=== PATIENT | female | born 1950 | race African-American/Black ===

== ENCOUNTER 2017-05-03 21:20 | Inpatient (IN) | payer OTHER ==
[2017-05-03] MEDS ORDERED: chlordiazePOXIDE HCL 25 MG CAPSULE PO PRN (23:07)
[2017-05-03] MEDS ORDERED: IBUPROFEN 400 MG TABLET (FP) PO PRN (23:07)
[2017-05-03] MEDS ORDERED: LOPERAMIDE HCL 2 MG CAPSULE PO PRN (23:07)
[2017-05-03] MEDS ORDERED: P-EPHED 60MG/TRIPROLIDI 2.5MG TABLET PO PRN (23:07)
[2017-05-03] MEDS ORDERED: MAG HYDROX/AL HYDROX/SIMETH 30 ML UNIT-DOSE CUP PO PRN (23:07)
[2017-05-03] MEDS ORDERED: guaiFENesin/D-METHORPHAN HB 10 ML UNIT-DOSE CUPS PO PRN (23:07)
[2017-05-03] MEDS ORDERED: MAGNESIUM HYDROX 2400MG/30ML ORAL SUSPENSION 30 ML CUP PO PRN (23:07)
[2017-05-03] MEDS ORDERED: NICOTINE POLACRILEX 2 MG GUM BC PRN (23:07)
[2017-05-03] MEDS ORDERED: ACETAMINOPHEN 325 MG TABLET (FP) PO PRN (23:07)
[2017-05-03] MEDS ORDERED: chlordiazePOXIDE HCL 25 MG CAPSULE PO ONE (23:07)
[2017-05-03] MEDS ORDERED: MAGNESIUM CITRATE 300 ML BOTTLE PO PRN (23:07)
--- NOTE | 2017-05-03 23:07 | HP ---
CIWA Score - CIWA Score Nausea/Vomitin-Mild Nausea/No Vomiting Muscle Tremors: 4-Moderate,w/Arms Extend Anxiety: 4-Mod. Anxious/Guarded Agitation: 4-Moderately Restless Paroxysmal Sweats: 1-Minimal Palms Moist Orientation: 0-Oriented Tacttile Disturbances: 0-None Auditory Disturbances: 0-None Visual Disturbances: 0-None Headache: 0-None Present CIWA-Ar Total Score: 14 Admission ROS BHS - HPI Chief Complaint: withdrawal sx Allergies/Adverse Reactions: Allergies Allergy/AdvReac Type Severity Reaction Status Date / Time No Known Allergies Allergy Verified 05/03/17 23:21 History of Present Illness: 66 years old female with long history of alcohol nicotine dependence has asthma hypertension diabetes ii and veno stasis, positive ppd and depression is admitted to detox Exam Limitations: No Limitations - Ebola screening Have you traveled outside of the country in the last 21 days: No (N) Have you had contact with anyone from an Ebola affected area: No Have you been sick,other than usual withdrawal symptoms: No Do you have a fever: No - Review of Systems Constitutional: Changes in sleep, Weight Stable EENT: reports: Dental Problems (multiple teeth missing) Respiratory: reports: SOB with Exertion Cardiac: reports: No Symptoms Reported GI: reports: Nausea, Poor Fluid Intake, Indigestion, Abdominal cramping : reports: No Symptoms Reported Musculoskeletal: reports: No Symptoms Reported Integumentary: reports: Change in Color (right lower leg > left veno stasis hyperpigmentation) Neuro: reports: Tremors Endocrine: reports: No Symptoms Reported Hematology: reports: No Symptoms Reported Psychiatric: reports: Judgement Intact, Orientated x3, Anxious, Depressed Other Systems: Reviewed and Negative Patient History - Patient Medical History Hx Anemia: No Hx Asthma: Yes (ALBUTEROL INHALER) Hx Chronic Obstructive Pulmonary Disease (COPD): No Hx Cancer: No Hx Cardiac Disorders: No Hx Congestive Heart Failure: No Hx Hypertension: Yes (on meds.) Hx Hypercholesterolemia: Yes (ON MED) Hx Pacemaker: No HX Cerebrovascular Accident: No Hx Seizures: No Hx Dementia: No Hx Diabetes: Yes (Type II- ON METFORMIN) Hx Gastrointestinal Disorders: No Hx Liver Disease: No Hx Genitourinary Disorders: No Hx Sexually Transmitted Disorders: No Hx Renal Disease (ESRD): No Hx Thyroid Disease: No Hx Human Immunodeficiency Virus (HIV): No (NEGATIVE HX) Hx Hepatitis C: No Hx Depression: Yes Hx Suicide Attempt: No Hx Bipolar Disorder: No Hx Schizophrenia: No - Patient Surgical History Past Surgical History: No Hx Neurologic Surgery: No Hx Cataract Extraction: No Hx Cardiac Surgery: No Hx Lung Surgery: No Hx Breast Surgery: No Hx Breast Biopsy: No Hx Abdominal Surgery: No Hx Appendectomy: No Hx Cholecystectomy: No Hx Genitourinary Surgery: No Hx Orthopedic Surgery: No - PPD History Previous Implant?: Yes Documented Results: Positive w/o proof Implanted On Prior [facility] Admission?: No Results: CXR TO BE DONE PPD to be Administered?: No - Reproductive History Patient is a Female of Child Bearing Age (11 -55 yrs old): No Patient : No - Smoking Cessation Smoking history: Current every day smoker Have you smoked in the past 12 months: Yes Aproximately how many cigarettes per day: 4 Cigars Per Day: 0 Hx Chewing Tobacco Use: No Initiated information on smoking cessation: Yes 'Breaking Loose' booklet given: 05/03/17 - Substance & Tx. History Hx Alcohol Use: Yes Hx Substance Use: Yes Substance Use Type: Alcohol, Heroin Hx Substance Use Treatment: Yes (05/04-05/08/16 [facility] - Substances Abused Alcohol Route: Oral Frequency: Daily Amount used: pint volka Age of first use: 17 Date of Last Use: 05/02/17 methadone Route: Oral Frequency: Daily Amount used: 80 mg Age of first use: 58 Date of Last Use: 05/03/17 Family Disease History - Family Disease History Family Disease History: Heart Disease: Mother (HTN/), Sister (HTN, ALCOHOL/DRUG/), Respiratory: Brother (DRUG/ALCOHOL/), Other: Father (), Mother, Brother, Sister Admission Physical Exam BHS - Physical General Appearance: Yes: Nourished, Appropriately Dressed, Mild Distress, Tremorous, Irritable, Sweating, Anxious HEENTM: Yes: Hearing grossly Normal, Normal ENT Inspection, Normocephalic, Normal Voice Respiratory: Yes: Chest Non-Tender, No Respiratory Distress, No Accessory Muscle Use, Wheezing, Expiration Neck: Yes: Supple, Trachea in good position Breast: Yes: Breasts Symetrical Cardiology: Yes: Regular Rhythm, S1, S2, Tachycardia (anxiousness - boyfriend recently) Abdominal: Yes: Normal Bowel Sounds, Non Tender, Soft Genitourinary: Yes: Within Normal Limits Back: Yes: Normal Inspection Musculoskeletal: Yes: full range of Motion, Gait Steady Extremities: Yes: Normal Range of Motion, Non-Tender, Tremors Neurological: Yes: Fully Oriented, Alert, Motor Strength 5/5, Normal Response, Depressed Affect Integumentary: Yes: Warm, Other (lower extremities discoloration) Lymphatic: Yes: Within Normal Limits - Diagnostic (1) Alcohol dependence with uncomplicated withdrawal Current Visit: Yes Status: Acute (2) Nicotine dependence Current Visit: Yes Status: Acute Qualifiers: Nicotine product type: cigarettes Substance use status: in withdrawal Qualified Code(s): F17.213 - Nicotine dependence, cigarettes, with withdrawal (3) Asthma Current Visit: Yes Status: Chronic Qualifiers: Asthma severity: mild persistent Asthma complication type: uncomplicated Qualified Code(s): J45.30 - Mild persistent asthma, uncomplicated (4) HTN (hypertension) Current Visit: Yes Status: Chronic Qualifiers: Hypertension type: essential hypertension Qualified Code(s): I10 - Essential (primary) hypertension (5) Hypercholesterolemia Current Visit: Yes Status: Chronic (6) Type II diabetes mellitus Current Visit: Yes Status: Chronic Qualifiers: Diabetes mellitus complication status: with skin complications Diabetes mellitus complication detail: with other skin complication Diabetes mellitus long-term insulin use: without long-term use Qualified Code(s): E11.628 - Type 2 diabetes mellitus with other skin complications; Z79.4 - [facility] (current) use of insulin (7) Methadone maintenance therapy patient Current Visit: Yes Status: Chronic Comment: 80 mg daily verification pending Cleared for Admission [facility] - Detox or Rehab [facility] Level of Care: Medically Managed Detox Regimen/Protocol: Librium [facility] Breath Alcohol Content Breath Alcohol Content: 0 Vital Signs - Vital Signs Vital Signs Refused: No Temperature: 98.6 F Temperature Source: Oral (98.6) Pulse Rate: 128 Respiratory Rate: 20 Blood Pressure: 134/72 BP Location: Left Arm Blood Pressure Position: Sitting - Height Height: 5 ft 6 in - Weight Weight: 155 lb Weight Measurement Method: Standing Scale Body Mass Index (BMI): 25.0 - Bowel Function Bowel Movement: Yes Urine Drug Screen - Control Is Test Valid: Yes - Results Drug Screen Negative: No Urine Drug Screen Results: MTD-Methadone
[2017-05-03] MEDS ORDERED: ALBUTEROL SO4 6.7 GM HFA INHALER IH PRN (23:14)
[2017-05-03] MEDS ORDERED: ALBUTEROL SO4 2.5/IPRATROPIUM 0.5 INH SOL 3 ML VIAL.NEB. NEB PRN (23:14)
[2017-05-03 23:21] VITALS: BMI 25.0
[2017-05-04] MEDS: diphenhydrAMINE HCL 50 MG CAPSULE PO PRN ×2 (00:43→22:41)
[2017-05-04] MEDS: chlordiazePOXIDE HCL 25 MG CAPSULE PO SCH ×5 (00:45→22:40)
[2017-05-04] MEDS: metFORMIN HCL 500 MG TABLET (FP) PO SCH ×2 (06:10→18:00)
[2017-05-04] MEDS ORDERED: METHADONE HCL 40 MG DISPERSABLE TABLET PO SCH ×2 (08:45→09:25)
[2017-05-04 09:41] LABS: PH,URINE 6.5 (5.0-8.0); URINE APPEARANCE CLEAR; URINE BILIRUBIN NEGATIVE (NEGATIVE); URINE BLOOD NEGATIVE (NEGATIVE); URINE COLOR LT. YELLOW; URINE GLUCOSE (UA) NEGATIVE (NEGATIVE); URINE KETONE NEGATIVE (NEGATIVE); URINE NITRITE NEGATIVE (NEGATIVE); URINE PROTEIN NEGATIVE (NEGATIVE); URINE UROBILINOGEN 0.2 mg/dL (0.2-1.0)
[2017-05-04 09:43] LABS: MCH 32.6 pg (25.7-33.7); MEAN CELL VOLUME 95.8 fl (80-96); MEAN PLT VOLUME 8.4 fl (7.5-11.1); PLATELET COUNT 103 K/MM3 (134-434); RDW 15.8 % (11.6-15.6); WHITE BLOOD COUNT 4.2 K/mm3 (4.0-10.0)
[2017-05-04 09:54] LABS: URINE LEUK ESTERASE 1+ (NEGATIVE)
[2017-05-04] MEDS ORDERED: METHADONE HCL 40 MG DISPERSABLE TABLET ONE (09:55)
[2017-05-04] MEDS ORDERED: METHADONE HCL 10 MG TABLET ONE (09:56)
[2017-05-04 10:15] LABS: URINE BACTERIA RARE /hpf (NONE SEEN); URINE WBC 1 /hpf (3-5)
[2017-05-04 10:21] LABS: ALBUMIN 3.3 g/dl (3.4-5.0); ALK PHOS 143 U/L (45-117); ANION GAP 9 (8-16); CALCIUM 8.3 mg/dL (8.5-10.1); CO2 27 mmol/L (21-32); GLUCOSE,RANDOM 114 mg/dL (74-106); SGOT/AST 261 U/L (15-37); SGPT/ALT 83 U/L (12-78); TOT PROT 6.2 g/dl (6.4-8.2)
[2017-05-04] MEDS: ASPIRIN 81 MG CHEWABLE TABLETS PO SCH (11:00)
[2017-05-04] MEDS: METHADONE 80 MG, METHADONE 10 MG PO SCH (11:00)
[2017-05-04] MEDS: amLODIPine BESYLATE 10 MG TABLET (FP) PO SCH (11:03)
[2017-05-04] MEDS: LISINOPRIL 10 MG TABLET (FP) PO SCH (11:03)
[2017-05-04] MEDS: NICOTINE 14 MG/24 HOURS TOPICAL PATCH TD SCH (11:04)
[2017-05-04] MEDS: PRENATAL VITAMINS W/ FOLIC ACID TABLET (FP) PO SCH (11:06)
--- NOTE | 2017-05-04 12:01 | PN ---
S CIWA - CIWA Score Nausea/Vomitin Muscle Tremors: 4-Moderate,w/Arms Extend Anxiety: 4-Mod. Anxious/Guarded Agitation: 4-Moderately Restless Paroxysmal Sweats: 3 Orientation: 0-Oriented Tacttile Disturbances: 0-None Auditory Disturbances: 0-None Visual Disturbances: 0-None Headache: 0-None Present CIWA-Ar Total Score: 18 BHS Progress Note (SOAP) Subjective: nausea, sweats, interrupted sleep, anxiety, tremors Objective: 05/04/17 12:00 Vital Signs - 8 hr 05/04/17 05/04/17 07:21 10:54 Temperature 97.3 F L 99.9 F H Pulse Rate 120 H 114 H Respiratory 20 16 Rate Blood Pressure 133/73 142/68 Laboratory Tests 05/04/17 05/04/17 05/04/17 06:09 07:00 07:00 WBC 4.2 RBC 3.76 Hgb 12.2 Hct 36.0 MCV 95.8 MCH 32.6 MCHC 34.0 RDW 15.8 H Plt Count 103 L MPV 8.4 Sodium 131 L Potassium 4.3 Chloride 95 L Carbon Dioxide 27 Anion Gap 9 BUN 20 H Creatinine 1.0 Creat Clearance w eGFR 55.47 POC Glucometer 119 Random Glucose 114 H Calcium 8.3 L Total Bilirubin 1.0 D AST 261 H D ALT 83 H D Alkaline Phosphatase 143 H D Total Protein 6.2 L Albumin 3.3 L Urine Color Urine Appearance Urine pH Urine Protein Urine Glucose (UA) Urine Ketones Urine Blood Urine Nitrite Urine Bilirubin Urine Urobilinogen Urine RBC Urine WBC Ur Epithelial Cells Urine Bacteria RPR Titer 05/04/17 05/04/17 07:00 07:00 WBC RBC Hgb Hct MCV MCH MCHC RDW Plt Count MPV Sodium Potassium Chloride Carbon Dioxide Anion Gap BUN Creatinine Creat Clearance w eGFR POC Glucometer Random Glucose Calcium Total Bilirubin AST ALT Alkaline Phosphatase Total Protein Albumin Urine Color Lt. yellow Urine Appearance Clear Urine pH 6.5 Urine Protein Negative Urine Glucose (UA) Negative Urine Ketones Negative Urine Blood Negative Urine Nitrite Negative Urine Bilirubin Negative Urine Urobilinogen 0.2 Urine RBC None Urine WBC 1 Ur Epithelial Cells Rare Urine Bacteria Rare RPR Titer Nonreactive Assessment: 05/04/17 12:00 withdrawal sx, elevated lfts Plan: cont detox, fluids, repeat labs prn medications
[2017-05-04] MEDS: MENTHOL/PHENOL 1 EACH UD MM PRN ×2 (12:34→23:09)
--- NOTE | 2017-05-04 12:52 | EKG ---
Test Reason : Blood Pressure : / mmHG Vent. Rate : 103 BPM Atrial Rate : 103 BPM P-R Int : 126 ms QRS Dur : 124 ms QT Int : 394 ms P-R-T Axes : 068 -07 093 degrees QTc Int : 516 ms SINUS TACHYCARDIA LEFT BUNDLE BRANCH BLOCK ABNORMAL ECG NO PREVIOUS ECGS AVAILABLE REPEAT EKG IF CLINICALLY INDICATED Confirmed by MARBELLA OLIVERA MD ([id number]) on 05/04/2017 12:52:23 PM Referred By: Confirmed By:MARBELLA OLIVERA MD
[2017-05-04] MEDS ORDERED: chlordiazePOXIDE HCL 25 MG CAPSULE PO ONE (13:00)
--- NOTE | 2017-05-04 14:33 | CONSULT ---
[facility] Psychiatric Consult - Data Date of interview: 05/04/17 Admission source: [facility] Identifying data: Another admission to 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 Substance Abuse History: Confirmed by patient in this interview. Smoking Cessation. Smoking history: Current every day smoker. Have you smoked in the past 12 months: Yes. Aproximately how many cigarettes per day: 4. Cigars Per Day: 0. Hx Chewing Tobacco Use: No. Initiated information on smoking cessation : Yes. 'Breaking Loose' booklet given: 05/03/17. - Substance & Tx. History. Hx Alcohol Use: Yes. Hx Substance Use: Yes. Substance Use Type: Alcohol, Heroin. Hx Substance Use Treatment: Yes (05/04-05/08/16 [facility]). - Substances Abused. Alcohol. Route: Oral. Frequency: Daily. Amount used: pint volka. Age of first use: 17. Date of Last Use: 05/02/17. methadone. Route: Oral. Frequency: Daily. Amount used: 80 mg. Age of first use: 58. Date of Last Use: 05/03/17 Medical History: Hypertension,hepatitis C,bronchial asthma,hypercholesterolemia and diabetes mellitus (type-II). Psychiatric History: No history of mental illness or psychiatric hospitalizations.Ms May is currently on methadone maintenance (90 mg/day) at the [facility].No history of suicide attempts. Physical/Sexual Abuse/Trauma History: No history of abuse. Additional Comment: Urine Drug Screen Results: MTD-Methadone.Noted. Mental Status Exam - Mental Status Exam Alert and Oriented to: Time, Place, Person Cognitive Function: Good Patient Appearance: Well Groomed Mood: Hopeful, Euthymic Affect: Appropriate, Normal Range Patient Behavior: Appropriate, Cooperative (friendly) Speech Pattern: Clear, Appropriate Voice Loudness: Normal Thought Process: Intact, Goal Oriented Thought Disorder: Not Present Hallucinations: Denies Suicidal Ideation: Denies Homicidal Ideation: Denies Insight/Judgement: Poor Sleep: Fair (on benadryl) Appetite: Good Muscle strength/Tone: Normal Gait/Station: Normal Psychiatric Findings - Problem List ([place] 1, 2,3) (1) Alcohol dependence with uncomplicated withdrawal Current Visit: Yes Status: Chronic (2) Opioid dependence on agonist therapy Current Visit: Yes Status: Acute (3) Nicotine dependence Current Visit: Yes Status: Chronic Qualifiers: Nicotine product type: cigarettes Substance use status: uncomplicated Qualified Code(s): F17.210 - Nicotine dependence, cigarettes, uncomplicated (4) Asthma Current Visit: Yes Status: Chronic Qualifiers: Asthma severity: mild intermittent Asthma complication type: uncomplicated Qualified Code(s): J45.20 - Mild intermittent asthma, uncomplicated (5) HTN (hypertension) Current Visit: Yes Status: Chronic Qualifiers: Hypertension type: essential hypertension Qualified Code(s): I10 - Essential (primary) hypertension (6) Hypercholesterolemia Current Visit: Yes Status: Chronic (7) Type II diabetes mellitus Current Visit: Yes Status: Chronic Qualifiers: Diabetes mellitus complication status: with skin complications Diabetes mellitus complication detail: with other skin complication Diabetes mellitus industrial relations counselor insulin use: without industrial relations counselor use Qualified Code(s): E11.628 - Type 2 diabetes mellitus with other skin complications; Z79.4 - intermediate (current) use of insulin (8) Insomnia Current Visit: Yes Status: Acute Comment: Mild.Patient reports benadryl as a useful medication. - Initial Treatment Plan Initial Treatment Plan: Psychoeducation.Detoxification.Benadryl 50 mg po hs prn.Side effects/benefits discussed with the patient.She agrees with this careplan.Observation.
[2017-05-04] MEDS: THIAMINE HCL 100 MG TABLET (FP) PO SCH (22:39)
[2017-05-04] MEDS: ATORVASTATIN CA 10 MG TABLET (FP) PO SCH (22:40)
[2017-05-04] MEDS: MINERAL OIL/PETROLAT/WATER TOPICAL CREAM 113 GM JAR TP SCH (23:04)
[2017-05-05] MEDS ORDERED: METHADONE HCL 10 MG TABLET ONE (04:51)
[2017-05-05] MEDS ORDERED: METHADONE HCL 40 MG DISPERSABLE TABLET ONE (04:51)
[2017-05-05] MEDS: chlordiazePOXIDE HCL 25 MG CAPSULE PO SCH ×3 (06:22→17:41)
[2017-05-05] MEDS: METHADONE 80 MG, METHADONE 10 MG PO SCH (06:22)
[2017-05-05] MEDS: MENTHOL/PHENOL 1 EACH UD MM PRN ×2 (07:01→10:49)
[2017-05-05] MEDS: metFORMIN HCL 500 MG TABLET (FP) PO SCH ×2 (07:02→17:41)
[2017-05-05 09:51] LABS: ALBUMIN 3.6 g/dl (3.4-5.0); ALK PHOS 173 U/L (45-117); ANION GAP 8 (8-16); BILIRUBIN,TOTAL 0.8 mg/dL (0.2-1.0); CO2 29 mmol/L (21-32); CREATININE 1.1 mg/dL (0.55-1.02); GLUCOSE,RANDOM 77 mg/dL (74-106); SGOT/AST 223 U/L (15-37); SGPT/ALT 91 U/L (12-78); TOT PROT 6.5 g/dl (6.4-8.2)
[2017-05-05] MEDS: ASPIRIN 81 MG CHEWABLE TABLETS PO SCH (10:47)
[2017-05-05] MEDS: LISINOPRIL 10 MG TABLET (FP) PO SCH (10:47)
[2017-05-05] MEDS: PRENATAL VITAMINS W/ FOLIC ACID TABLET (FP) PO SCH (10:47)
[2017-05-05] MEDS: amLODIPine BESYLATE 10 MG TABLET (FP) PO SCH (10:48)
[2017-05-05] MEDS: NICOTINE 14 MG/24 HOURS TOPICAL PATCH TD SCH (10:49)
--- NOTE | 2017-05-05 12:54 | PN ---
S CIWA - CIWA Score Nausea/Vomitin-No Nausea/No Vomiting Muscle Tremors: 4-Moderate,w/Arms Extend Anxiety: 3 Agitation: 3 Paroxysmal Sweats: 3 Orientation: 0-Oriented Tacttile Disturbances: 0-None Auditory Disturbances: 0-None Visual Disturbances: 0-None Headache: 0-None Present CIWA-Ar Total Score: 13 S Progress Note (SOAP) Subjective: sweats shakes interrupted sleep agitation Objective: 05/05/17 12:53 Vital Signs Temperature 99.1 F 05/05/17 10:00 Pulse Rate 110 H 05/05/17 10:00 Respiratory Rate 18 05/05/17 10:00 Blood Pressure 106/56 05/05/17 10:00 O2 Sat by Pulse Oximetry (%) Laboratory Tests 05/04/17 05/04/17 05/04/17 06:09 07:00 07:00 WBC 4.2 RBC 3.76 Hgb 12.2 Hct 36.0 MCV 95.8 MCH 32.6 MCHC 34.0 RDW 15.8 H Plt Count 103 L MPV 8.4 INR Sodium 131 L Potassium 4.3 Chloride 95 L Carbon Dioxide 27 Anion Gap 9 BUN 20 H Creatinine 1.0 Creat Clearance w eGFR 55.47 POC Glucometer 119 Random Glucose 114 H Calcium 8.3 L Total Bilirubin 1.0 D AST 261 H D ALT 83 H D Alkaline Phosphatase 143 H D Total Protein 6.2 L Albumin 3.3 L Urine Color Urine Appearance Urine pH Ur Specific Devol Urine Protein Urine Glucose (UA) Urine Ketones Urine Blood Urine Nitrite Urine Bilirubin Urine Urobilinogen Urine RBC Urine WBC Ur Epithelial Cells Urine Bacteria RPR Titer 05/04/17 05/04/17 05/04/17 07:00 07:00 16:35 WBC RBC Hgb Hct MCV MCH MCHC RDW Plt Count MPV INR Sodium Potassium Chloride Carbon Dioxide Anion Gap BUN Creatinine Creat Clearance w eGFR POC Glucometer 152 Random Glucose Calcium Total Bilirubin AST ALT Alkaline Phosphatase Total Protein Albumin Urine Color Lt. yellow Urine Appearance Clear Urine pH 6.5 Ur Specific Devol 1.010 Urine Protein Negative Urine Glucose (UA) Negative Urine Ketones Negative Urine Blood Negative Urine Nitrite Negative Urine Bilirubin Negative Urine Urobilinogen 0.2 Urine RBC None Urine WBC 1 Ur Epithelial Cells Rare Urine Bacteria Rare RPR Titer Nonreactive 05/05/17 05/05/17 05/05/17 06:26 07:00 07:00 WBC RBC Hgb Hct MCV MCH MCHC RDW Plt Count MPV INR 1.00 Sodium 131 L Potassium 4.4 Chloride 94 L Carbon Dioxide 29 Anion Gap 8 BUN 24 H Creatinine 1.1 H Creat Clearance w eGFR 49.69 POC Glucometer 90 Random Glucose 77 D Calcium 9.0 Total Bilirubin 0.8 AST 223 H ALT 91 H Alkaline Phosphatase 173 H D Total Protein 6.5 Albumin 3.6 Urine Color Urine Appearance Urine pH Ur Specific Devol Urine Protein Urine Glucose (UA) Urine Ketones Urine Blood Urine Nitrite Urine Bilirubin Urine Urobilinogen Urine RBC Urine WBC Ur Epithelial Cells Urine Bacteria RPR Titer some improving with ast and alt awake/alert ambulating no acute distress d/c tylenol Assessment: 05/05/17 12:54 withdrawal sx Plan: continue detox increase fluids
[2017-05-05] MEDS: ATORVASTATIN CA 10 MG TABLET (FP) PO SCH (22:37)
[2017-05-05] MEDS: diphenhydrAMINE HCL 50 MG CAPSULE PO PRN (22:37)
[2017-05-05] MEDS: chlordiazePOXIDE 5 MG CAPSULE PO SCH (22:37)
[2017-05-05] MEDS: MINERAL OIL/PETROLAT/WATER TOPICAL CREAM 113 GM JAR TP SCH (22:38)
[2017-05-05] MEDS: THIAMINE HCL 100 MG TABLET (FP) PO SCH (23:02)
[2017-05-06] MEDS ORDERED: METHADONE HCL 40 MG DISPERSABLE TABLET ONE (04:24)
[2017-05-06] MEDS ORDERED: METHADONE HCL 10 MG TABLET ONE (04:25)
[2017-05-06] MEDS: METHADONE 80 MG, METHADONE 10 MG PO SCH (06:39)
[2017-05-06] MEDS: metFORMIN HCL 500 MG TABLET (FP) PO SCH ×2 (06:40→18:18)
[2017-05-06] MEDS: chlordiazePOXIDE 5 MG CAPSULE PO SCH ×3 (06:45→18:17)
[2017-05-06] MEDS: ASPIRIN 81 MG CHEWABLE TABLETS PO SCH (11:05)
[2017-05-06] MEDS: amLODIPine BESYLATE 10 MG TABLET (FP) PO SCH (11:05)
[2017-05-06] MEDS: LISINOPRIL 10 MG TABLET (FP) PO SCH (11:05)
[2017-05-06] MEDS: PRENATAL VITAMINS W/ FOLIC ACID TABLET (FP) PO SCH (11:05)
[2017-05-06] MEDS: NICOTINE 14 MG/24 HOURS TOPICAL PATCH TD SCH (11:08)
--- NOTE | 2017-05-06 11:51 | PN ---
BHS Progress Note (SOAP) Subjective: feeling better little sweats Objective: 05/06/17 11:50 Vital Signs Temperature 98.3 F 05/06/17 10:09 Pulse Rate 74 05/06/17 10:09 Respiratory Rate 20 05/06/17 10:09 Blood Pressure 115/82 05/06/17 10:09 O2 Sat by Pulse Oximetry (%) awake/alert ambulating no acute distress Assessment: 05/06/17 11:50 withdrawal sx Plan: continue detox increase fluids continue eucernin oint as ordered d/c in am
[2017-05-06] MEDS: chlordiazePOXIDE HCL 10 MG CAPSULE PO SCH (22:36)
[2017-05-06] MEDS: THIAMINE HCL 100 MG TABLET (FP) PO SCH (22:36)
[2017-05-06] MEDS: ATORVASTATIN CA 10 MG TABLET (FP) PO SCH (22:36)
[2017-05-06] MEDS: diphenhydrAMINE HCL 50 MG CAPSULE PO PRN (22:37)
[2017-05-06] MEDS: MINERAL OIL/PETROLAT/WATER TOPICAL CREAM 113 GM JAR TP SCH (22:39)
[2017-05-07] MEDS ORDERED: METHADONE HCL 40 MG DISPERSABLE TABLET ONE (04:55)
[2017-05-07] MEDS ORDERED: METHADONE HCL 10 MG TABLET ONE (04:56)
[2017-05-07] MEDS: METHADONE 80 MG, METHADONE 10 MG PO SCH (06:11)
[2017-05-07] MEDS: chlordiazePOXIDE HCL 10 MG CAPSULE PO SCH ×3 (06:12→16:47)
[2017-05-07] MEDS: metFORMIN HCL 500 MG TABLET (FP) PO SCH ×2 (06:12→16:47)
[2017-05-07] MEDS: PRENATAL VITAMINS W/ FOLIC ACID TABLET (FP) PO SCH (09:17)
[2017-05-07] MEDS: ASPIRIN 81 MG CHEWABLE TABLETS PO SCH (09:17)
[2017-05-07] MEDS: LISINOPRIL 10 MG TABLET (FP) PO SCH (09:18)
[2017-05-07] MEDS: NICOTINE 14 MG/24 HOURS TOPICAL PATCH TD SCH (09:18)
[2017-05-07] MEDS: amLODIPine BESYLATE 10 MG TABLET (FP) PO SCH (09:18)
--- NOTE | 2017-05-07 09:32 | DS ---
[facility] Detox Discharge Summary Admission Date: 05/03/17 Discharge Date: 05/07/17 - History Present History: Alcohol Dependence, MMTP - Physical Exam Results Vital Signs: Vital Signs Temperature 97.7 F 05/07/17 06:00 Pulse Rate 103 H 05/07/17 06:00 Respiratory Rate 18 05/07/17 06:00 Blood Pressure 109/56 05/07/17 06:00 O2 Sat by Pulse Oximetry (%) - Treatment Hospital Course: Detox Protocol Followed, Detoxed Safely, Responded well, Discharged Condition Good, Rehab Referral Accepted - Medication Discharge Medications: Ambulatory Orders Albuterol [Ventolin] 17 gm IH Q4H PRN 11/11/11 Lisinopril [Zestril] 20 mg PO DAILY 11/11/11 Simvastatin [Zocor] 20 mg PO HS 11/11/11 Amlodipine Besylate [Norvasc -] 10 mg PO DAILY #30 tablet 04/14/15 Metformin HCl [Glucophage -] 500 mg PO BID #60 tablet 04/14/15 Aspirin [ASA -] 81 mg PO DAILY 05/04/16 Mirtazapine 7.5 mg PO HS #20 tablet 05/07/16 - Diagnosis (1) Alcohol dependence with uncomplicated withdrawal Current Visit: Yes Status: Chronic (2) Nicotine dependence Current Visit: Yes Status: Chronic Qualifiers: Nicotine product type: cigarettes Substance use status: uncomplicated Qualified Code(s): F17.210 - Nicotine dependence, cigarettes, uncomplicated (3) Asthma Current Visit: Yes Status: Chronic Qualifiers: Asthma severity: mild intermittent Asthma complication type: uncomplicated Qualified Code(s): J45.20 - Mild intermittent asthma, uncomplicated (4) HTN (hypertension) Current Visit: Yes Status: Chronic Qualifiers: Hypertension type: essential hypertension Qualified Code(s): I10 - Essential (primary) hypertension (5) Hypercholesterolemia Current Visit: Yes Status: Chronic (6) Methadone maintenance therapy patient Current Visit: Yes Status: Chronic (7) Type II diabetes mellitus Current Visit: Yes Status: Chronic Qualifiers: Diabetes mellitus complication status: with skin complications Diabetes mellitus complication detail: with other skin complication Diabetes mellitus regional intermodal truck driver insulin use: without regional intermodal truck driver use Qualified Code(s): E11.628 - Type 2 diabetes mellitus with other skin complications; Z79.4 - long term acute care registered nurse (current) use of insulin - AMA Did Patient Leave Against Medical Advice: No
[2017-05-07 17:33] VITALS: BP 106/58; PULSE 90; TEMP 98.2
== END 2017-05-07 18:15 | disposition other institution (70) | DRG 897 ==
LOC: YASAS 21:20 → Y6N 23:17
PROVIDERS: ADMIT Internal Medicine; ATTEND Internal Medicine
PROC: HZ2ZZZZ Detoxification Services for Substance Abuse Treatment (ICD-10-PCS; principal; 2017-05-03)
DX: F11.20 Opioid dependence, uncomplicated (principal); F10.230 Alcohol dependence with withdrawal, uncomplicated; F17.210 Nicotine dependence, cigarettes, uncomplicated; G47.00 Insomnia, unspecified; I10 Essential (primary) hypertension; E11.628 Type 2 diabetes mellitus with other skin complications; Z79.4 Long term (current) use of insulin
CPT/HCPCS: 36415; 71020-TC; 80053; 81003; 81015; 85027; 85610; 86593; 93005; 93010

== ENCOUNTER 2017-05-07 17:34 | Inpatient (IN) | payer OTHER ==
--- NOTE | 2017-05-07 20:29 | HP ---
[facility] Re[facility] Assess/Revision - Admission History Admitted to Rehab from: [facility] Date of Admission to Rehab: 05/07/17 - Findings Detox History & Physical reviewed: Yes Concur with findings: Yes Comments/Additional Findings: TRANSFERRED FROM DETOX TO REHAB ADMISSION PER PROTOCOL
[2017-05-07] MEDS ORDERED: P-EPHED 60MG/TRIPROLIDI 2.5MG TABLET PO PRN (20:30)
[2017-05-07] MEDS ORDERED: MENTHOL/PHENOL 1 EACH UD MM PRN (20:30)
[2017-05-07] MEDS ORDERED: hydrOXYzine PAMOATE 50 MG CAPSULE (FP) PO PRN (20:30)
[2017-05-07] MEDS ORDERED: LOPERAMIDE HCL 2 MG CAPSULE PO PRN (20:30)
[2017-05-07] MEDS ORDERED: MAGNESIUM CITRATE 300 ML BOTTLE PO PRN (20:30)
[2017-05-07] MEDS ORDERED: MAGNESIUM HYDROX 2400MG/30ML ORAL SUSPENSION 30 ML CUP PO PRN (20:30)
[2017-05-07] MEDS ORDERED: MAG HYDROX/AL HYDROX/SIMETH 30 ML UNIT-DOSE CUP PO PRN (20:30)
[2017-05-07] MEDS ORDERED: NICOTINE 14 MG/24 HOURS TOPICAL PATCH TD PRN (20:30)
[2017-05-07] MEDS ORDERED: guaiFENesin/D-METHORPHAN HB 10 ML UNIT-DOSE CUPS PO PRN (20:30)
--- NOTE | 2017-05-07 20:30 | HP ---
Admission ROS S - HPI Allergies/Adverse Reactions: Allergies Allergy/AdvReac Type Severity Reaction Status Date / Time No Known Allergies Allergy Verified 05/03/17 23:21 - Ebola screening Have you traveled outside of the country in the last 21 days: No Have you had contact with anyone from an Ebola affected area: No Do you have a fever: No Patient History - Patient Medical History Hx Anemia: No Hx Asthma: Yes (ALBUTEROL INHALER) Hx Chronic Obstructive Pulmonary Disease (COPD): No Hx Cancer: No Hx Cardiac Disorders: No Hx Congestive Heart Failure: No Hx Hypertension: Yes (on meds.) Hx Hypercholesterolemia: Yes (ON MED) Hx Pacemaker: No HX Cerebrovascular Accident: No Hx Seizures: No Hx Dementia: No Hx Diabetes: Yes (Type II- ON METFORMIN) Hx Gastrointestinal Disorders: No Hx Liver Disease: No Hx Genitourinary Disorders: No Hx Sexually Transmitted Disorders: No Hx Renal Disease (ESRD): No Hx Thyroid Disease: No Hx Human Immunodeficiency Virus (HIV): No (NEGATIVE HX) Hx Hepatitis C: No Hx Depression: Yes Hx Suicide Attempt: No Hx Bipolar Disorder: No Hx Schizophrenia: No - Patient Surgical History Past Surgical History: No Hx Neurologic Surgery: No Hx Cataract Extraction: No Hx Cardiac Surgery: No Hx Lung Surgery: No Hx Breast Surgery: No Hx Breast Biopsy: No Hx Abdominal Surgery: No Hx Appendectomy: No Hx Cholecystectomy: No Hx Genitourinary Surgery: No Hx Section: No Hx Orthopedic Surgery: No Anesthesia Reaction: No - PPD History Results: CXR TO BE DONE - Smoking Cessation Smoking history: Former smoker Have you smoked in the past 12 months: No Aproximately how many cigarettes per day: 0 Cigars Per Day: 0 Hx Chewing Tobacco Use: No Initiated information on smoking cessation: No Family Disease History - Family Disease History Family Disease History: Heart Disease: Mother (HTN/), Sister (HTN, ALCOHOL/DRUG/), Respiratory: Brother (DRUG/ALCOHOL/), Other: Father (), Mother, Brother, Sister BHS Breath Alcohol Content Breath Alcohol Content: 0 Inpatient Rehab Admission - Initial Determination Are CD services needed?: Yes Free of communicable disease: Yes Not in need of hospitalization: Yes - Rehab Admission Criteria Previous failed treatment: Yes Poor recovery environment: No Comorbidities: No Lacks judgement: No Patient is meeting Inpatient Rehab admission criteria:: Yes
[2017-05-07] MEDS ORDERED: ALBUTEROL SO4 18 GM HFA INHALER IH PRN (20:31)
[2017-05-07] MEDS: ATORVASTATIN CA 10 MG TABLET (FP) PO SCH (22:28)
[2017-05-07] MEDS: THIAMINE HCL 100 MG TABLET (FP) PO SCH (22:28)
[2017-05-07] MEDS: diphenhydrAMINE HCL 50 MG CAPSULE PO PRN (22:28)
[2017-05-08] MEDS: diphenhydrAMINE HCL 50 MG CAPSULE PO PRN ×2 (02:05→22:09)
[2017-05-08] MEDS: metFORMIN HCL 500 MG TABLET (FP) PO SCH ×2 (06:50→17:25)
[2017-05-08] MEDS: INSULIN SLIDING SCALE (NOVOLOG) 1 VIAL SQ SCH ×2 (06:50→17:27)
[2017-05-08] MEDS ORDERED: METHADONE HCL 40 MG DISPERSABLE TABLET PO SCH (07:30)
[2017-05-08] MEDS ORDERED: FLU VACCINE QUAD 60 MCG/0.5 ML (MDV 17-18) IM ONE ×2 (07:57→12:00)
[2017-05-08] MEDS ORDERED: METHADONE HCL 10 MG TABLET ONE (08:55)
[2017-05-08] MEDS ORDERED: METHADONE HCL 40 MG DISPERSABLE TABLET ONE (08:55)
[2017-05-08] MEDS: METHADONE 80 MG, METHADONE 10 MG PO SCH (09:00)
[2017-05-08] MEDS: amLODIPine BESYLATE 10 MG TABLET (FP) PO SCH (10:31)
[2017-05-08] MEDS: PRENATAL VITAMINS W/ FOLIC ACID TABLET (FP) PO SCH (10:31)
[2017-05-08] MEDS: ASPIRIN 81 MG CHEWABLE TABLETS PO SCH (10:31)
[2017-05-08] MEDS: THIAMINE HCL 100 MG TABLET (FP) PO SCH (22:09)
[2017-05-08] MEDS: ATORVASTATIN CA 10 MG TABLET (FP) PO SCH (22:10)
[2017-05-09] MEDS ORDERED: METHADONE HCL 40 MG DISPERSABLE TABLET ONE (06:05)
[2017-05-09] MEDS ORDERED: METHADONE HCL 10 MG TABLET ONE (06:05)
[2017-05-09] MEDS: metFORMIN HCL 500 MG TABLET (FP) PO SCH ×2 (06:35→17:04)
[2017-05-09] MEDS: METHADONE 80 MG, METHADONE 10 MG PO SCH (06:35)
[2017-05-09] MEDS: NICOTINE POLACRILEX 2 MG GUM BUC PRN ×3 (06:36→15:47)
[2017-05-09] MEDS: INSULIN SLIDING SCALE (NOVOLOG) 1 VIAL SQ SCH ×2 (07:06→17:03)
[2017-05-09] MEDS: ASPIRIN 81 MG CHEWABLE TABLETS PO SCH (10:11)
[2017-05-09] MEDS: amLODIPine BESYLATE 10 MG TABLET (FP) PO SCH (10:11)
[2017-05-09] MEDS: PRENATAL VITAMINS W/ FOLIC ACID TABLET (FP) PO SCH (10:11)
[2017-05-09] MEDS: ATORVASTATIN CA 10 MG TABLET (FP) PO SCH (21:18)
[2017-05-09] MEDS: THIAMINE HCL 100 MG TABLET (FP) PO SCH (21:18)
[2017-05-10] MEDS ORDERED: METHADONE HCL 10 MG TABLET ONE (03:39)
[2017-05-10] MEDS ORDERED: METHADONE HCL 40 MG DISPERSABLE TABLET ONE (03:39)
[2017-05-10] MEDS: INSULIN SLIDING SCALE (NOVOLOG) 1 VIAL SQ SCH ×2 (06:25→17:04)
[2017-05-10] MEDS: METHADONE 80 MG, METHADONE 10 MG PO SCH (06:26)
[2017-05-10] MEDS: metFORMIN HCL 500 MG TABLET (FP) PO SCH ×2 (06:27→17:03)
[2017-05-10] MEDS: NICOTINE POLACRILEX 2 MG GUM BUC PRN (06:28)
[2017-05-10] MEDS: ASPIRIN 81 MG CHEWABLE TABLETS PO SCH (10:25)
[2017-05-10] MEDS: amLODIPine BESYLATE 10 MG TABLET (FP) PO SCH (10:25)
[2017-05-10] MEDS: PRENATAL VITAMINS W/ FOLIC ACID TABLET (FP) PO SCH (10:25)
--- NOTE | 2017-05-10 13:20 | HP ---
Psychiatrist Admission - Data Date of interview: 05/10/17 Admission source: [address] [place] [address] Identifying data: This is the first admission to [address] [place] [address] rehabilitation for this 66 years old AA mother of 48 yo son,resides alone ,supported by [facility]. Medical History: DM,Hyperlipidemia,HTN. Psychiatric History: denies Physical/Sexual Abuse/Trauma History: denies Vital Signs: Vital Signs - 24 hr 05/10/17 05/10/17 05/10/17 00:30 03:30 07:44 Temperature 98.9 F Pulse Rate 93 H Respiratory 18 18 18 Rate Blood Pressure 95/63 05/10/17 10:00 Temperature Pulse Rate 83 Respiratory 18 Rate Blood Pressure 109/67 Allergies/Adverse Reactions: Allergies Allergy/AdvReac Type Severity Reaction Status Date / Time No Known Allergies Allergy Verified 05/03/17 23:21 Date of last physical exam: 05/03/17 Concur with the findings of this exam: Yes - Substance Abuse/Tx History Hx Alcohol Use: Yes (drinking since 17 yo,I pint of vodka daily) Hx Substance Use: Yes (heroin since 58 yo IV/sniffing 6-7 bags daily,cocaine on/ off) Substance Use Type: Alcohol, Cocaine, Opiates Hx Substance Use Treatment: Yes (this is his first inpatient rehabilitation [employer] treatment) - Admission Criteria Previous failed treatment: Yes Poor recovery environment: Yes Comorbidities: Yes Lacks judgement: Yes Mental Status Exam - Mental Status Exam Alert and Oriented to: Time, Place, Person Cognitive Function: Grossly Intact Patient Appearance: Well Groomed Mood: Hopeful, Euthymic Affect: Appropriate, Mood Congruent Patient Behavior: Cooperative Speech Pattern: Clear Voice Loudness: Normal Thought Process: Goal Oriented Thought Disorder: Not Present Hallucinations: Denies Suicidal Ideation: Denies Homicidal Ideation: Denies Insight/Judgement: Fair Sleep: Fair Appetite: Good Muscle strength/Tone: Normal Gait/Station: Normal Psychiatric Findings - Problem List ([place] 1, 2,3) (1) Opioid dependence on agonist therapy Current Visit: Yes Status: Chronic (2) Substance-induced sleep disorder Current Visit: Yes Status: Chronic (3) Asthma Current Visit: Yes Status: Chronic Qualifiers: Asthma severity: mild intermittent Asthma complication type: uncomplicated Qualified Code(s): J45.20 - Mild intermittent asthma, uncomplicated (4) HTN (hypertension) Current Visit: Yes Status: Chronic Qualifiers: Hypertension type: essential hypertension Qualified Code(s): I10 - Essential (primary) hypertension (5) Hypercholesterolemia Current Visit: Yes Status: Chronic (6) Nicotine dependence Current Visit: Yes Status: Chronic Qualifiers: Nicotine product type: cigarettes Substance use status: uncomplicated Qualified Code(s): F17.210 - Nicotine dependence, cigarettes, uncomplicated (7) Type II diabetes mellitus Current Visit: Yes Status: Chronic Qualifiers: Diabetes mellitus complication status: with skin complications Diabetes mellitus complication detail: with other skin complication Diabetes mellitus [employer] insulin use: without local [employer] driver use Qualified Code(s): E11.628 - Type 2 diabetes mellitus with other skin complications; Z79.4 - residential (current) use of insulin - Initial Treatment Plan Initial Treatment Plan: Will monitor progress.
--- NOTE | 2017-05-10 14:45 | PN ---
[facility] Progress Note Note: chronic swelling of both LE with skin changes more on the right. Vital Signs - 8 hr 05/10/17 05/10/17 07:44 10:00 Temperature 98.9 F Pulse Rate 93 H 83 Respiratory 18 18 Rate Blood Pressure 95/63 109/67 Laboratory Last Values POC Glucometer 137 UNITS (()) 05/10/17 06:25 D/C norvasc Lasix 20mg/d Aldactone 25mg bid
[2017-05-10] MEDS: FUROSEMIDE 20 MG TABLET (FP) PO SCH (15:14)
[2017-05-10] MEDS: SPIRONOLACTONE 25 MG TABLET (FP) PO SCH (17:03)
[2017-05-10] MEDS: TRIAMCINOLONE ACET 0.1% OINT 15 GM TUBE TP SCH ×2 (17:03→21:59)
[2017-05-10] MEDS: ATORVASTATIN CA 10 MG TABLET (FP) PO SCH (21:59)
[2017-05-10] MEDS: THIAMINE HCL 100 MG TABLET (FP) PO SCH (21:59)
[2017-05-10] MEDS: ACETAMINOPHEN 325 MG TABLET (FP) PO PRN (22:13)
[2017-05-11] MEDS ORDERED: METHADONE HCL 40 MG DISPERSABLE TABLET ONE (03:26)
[2017-05-11] MEDS ORDERED: METHADONE HCL 10 MG TABLET ONE (03:26)
[2017-05-11] MEDS: METHADONE 80 MG, METHADONE 10 MG PO SCH (06:19)
[2017-05-11] MEDS: metFORMIN HCL 500 MG TABLET (FP) PO SCH ×2 (06:21→17:02)
[2017-05-11] MEDS: INSULIN SLIDING SCALE (NOVOLOG) 1 VIAL SQ SCH ×2 (06:21→17:04)
[2017-05-11] MEDS: NICOTINE POLACRILEX 2 MG GUM BUC PRN (06:27)
[2017-05-11] MEDS: ASPIRIN 81 MG CHEWABLE TABLETS PO SCH (10:25)
[2017-05-11] MEDS: PRENATAL VITAMINS W/ FOLIC ACID TABLET (FP) PO SCH (10:25)
[2017-05-11] MEDS: TRIAMCINOLONE ACET 0.1% OINT 15 GM TUBE TP SCH ×4 (10:26→22:04)
[2017-05-11] MEDS: SPIRONOLACTONE 25 MG TABLET (FP) PO SCH ×2 (10:27→17:45)
[2017-05-11] MEDS: FUROSEMIDE 20 MG TABLET (FP) PO SCH (10:27)
[2017-05-11] MEDS: ATORVASTATIN CA 10 MG TABLET (FP) PO SCH (22:05)
[2017-05-11] MEDS: THIAMINE HCL 100 MG TABLET (FP) PO SCH (22:05)
[2017-05-11] MEDS: diphenhydrAMINE HCL 50 MG CAPSULE PO PRN (22:05)
[2017-05-12] MEDS ORDERED: METHADONE HCL 10 MG TABLET ONE (03:35)
[2017-05-12] MEDS ORDERED: METHADONE HCL 40 MG DISPERSABLE TABLET ONE (03:35)
[2017-05-12] MEDS: METHADONE 80 MG, METHADONE 10 MG PO SCH (06:31)
[2017-05-12] MEDS: INSULIN SLIDING SCALE (NOVOLOG) 1 VIAL SQ SCH ×2 (06:31→17:08)
[2017-05-12] MEDS: metFORMIN HCL 500 MG TABLET (FP) PO SCH ×2 (06:32→17:08)
[2017-05-12] MEDS: PRENATAL VITAMINS W/ FOLIC ACID TABLET (FP) PO SCH (10:29)
[2017-05-12] MEDS: ASPIRIN 81 MG CHEWABLE TABLETS PO SCH (10:29)
[2017-05-12] MEDS: TRIAMCINOLONE ACET 0.1% OINT 15 GM TUBE TP SCH ×4 (10:30→21:48)
[2017-05-12] MEDS: FUROSEMIDE 20 MG TABLET (FP) PO SCH (10:31)
[2017-05-12] MEDS: SPIRONOLACTONE 25 MG TABLET (FP) PO SCH ×2 (10:31→17:08)
[2017-05-12] MEDS: NICOTINE POLACRILEX 2 MG GUM BUC PRN ×2 (16:27→21:57)
[2017-05-12] MEDS ORDERED: INSULIN (NOVOLOG) ASPART 100 UNITS/ML 10ML VIAL ONE ×2 (16:48→23:15)
[2017-05-12] MEDS: ATORVASTATIN CA 10 MG TABLET (FP) PO SCH (21:47)
[2017-05-12] MEDS: THIAMINE HCL 100 MG TABLET (FP) PO SCH (21:47)
[2017-05-12] MEDS: diphenhydrAMINE HCL 50 MG CAPSULE PO PRN (21:48)
[2017-05-13] MEDS ORDERED: METHADONE HCL 10 MG TABLET ONE (03:26)
[2017-05-13] MEDS ORDERED: METHADONE HCL 40 MG DISPERSABLE TABLET ONE (03:27)
[2017-05-13] MEDS: METHADONE 80 MG, METHADONE 10 MG PO SCH (06:27)
[2017-05-13] MEDS: metFORMIN HCL 500 MG TABLET (FP) PO SCH ×2 (06:27→17:08)
[2017-05-13] MEDS: INSULIN SLIDING SCALE (NOVOLOG) 1 VIAL SQ SCH ×2 (06:28→17:09)
[2017-05-13] MEDS ORDERED: PT OWN MED DRAWER 7, Y5N ONE ×2 (08:59→13:08)
[2017-05-13] MEDS: ASPIRIN 81 MG CHEWABLE TABLETS PO SCH (10:25)
[2017-05-13] MEDS: PRENATAL VITAMINS W/ FOLIC ACID TABLET (FP) PO SCH (10:25)
[2017-05-13] MEDS: TRIAMCINOLONE ACET 0.1% OINT 15 GM TUBE TP SCH ×4 (10:26→22:00)
[2017-05-13] MEDS: FUROSEMIDE 20 MG TABLET (FP) PO SCH (10:26)
[2017-05-13] MEDS: SPIRONOLACTONE 25 MG TABLET (FP) PO SCH ×2 (10:26→17:08)
[2017-05-13] MEDS: NICOTINE POLACRILEX 2 MG GUM BUC PRN (10:34)
[2017-05-13] MEDS: THIAMINE HCL 100 MG TABLET (FP) PO SCH (21:58)
[2017-05-13] MEDS: ACETAMINOPHEN 325 MG TABLET (FP) PO PRN (21:59)
[2017-05-13] MEDS: ATORVASTATIN CA 10 MG TABLET (FP) PO SCH (22:00)
[2017-05-14] MEDS ORDERED: METHADONE HCL 40 MG DISPERSABLE TABLET ONE (06:06)
[2017-05-14] MEDS ORDERED: METHADONE HCL 10 MG TABLET ONE (06:06)
[2017-05-14] MEDS: metFORMIN HCL 500 MG TABLET (FP) PO SCH ×2 (06:42→17:07)
[2017-05-14] MEDS: METHADONE 80 MG, METHADONE 10 MG PO SCH (06:42)
[2017-05-14] MEDS: INSULIN SLIDING SCALE (NOVOLOG) 1 VIAL SQ SCH ×2 (06:45→17:08)
[2017-05-14] MEDS: PRENATAL VITAMINS W/ FOLIC ACID TABLET (FP) PO SCH (10:26)
[2017-05-14] MEDS: ASPIRIN 81 MG CHEWABLE TABLETS PO SCH (10:26)
[2017-05-14] MEDS: FUROSEMIDE 20 MG TABLET (FP) PO SCH (10:27)
[2017-05-14] MEDS: SPIRONOLACTONE 25 MG TABLET (FP) PO SCH ×2 (10:27→17:11)
[2017-05-14] MEDS: TRIAMCINOLONE ACET 0.1% OINT 15 GM TUBE TP SCH ×4 (10:27→21:59)
[2017-05-14] MEDS: NICOTINE POLACRILEX 2 MG GUM BUC PRN (13:06)
[2017-05-14] MEDS ORDERED: PT OWN MED DRAWER 7, Y5N ONE (13:17)
[2017-05-14] MEDS: diphenhydrAMINE HCL 50 MG CAPSULE PO PRN (21:57)
[2017-05-14] MEDS: ATORVASTATIN CA 10 MG TABLET (FP) PO SCH (21:57)
[2017-05-14] MEDS: THIAMINE HCL 100 MG TABLET (FP) PO SCH (21:57)
[2017-05-15] MEDS ORDERED: METHADONE HCL 10 MG TABLET ONE (06:27)
[2017-05-15] MEDS ORDERED: METHADONE HCL 40 MG DISPERSABLE TABLET ONE (06:27)
[2017-05-15] MEDS: metFORMIN HCL 500 MG TABLET (FP) PO SCH ×2 (06:41→17:11)
[2017-05-15] MEDS: METHADONE 80 MG, METHADONE 10 MG PO SCH (06:41)
[2017-05-15] MEDS: INSULIN SLIDING SCALE (NOVOLOG) 1 VIAL SQ SCH ×2 (06:42→16:46)
[2017-05-15] MEDS: SPIRONOLACTONE 25 MG TABLET (FP) PO SCH ×2 (10:11→17:11)
[2017-05-15] MEDS: ASPIRIN 81 MG CHEWABLE TABLETS PO SCH (10:11)
[2017-05-15] MEDS: TRIAMCINOLONE ACET 0.1% OINT 15 GM TUBE TP SCH ×4 (10:11→21:54)
[2017-05-15] MEDS: PRENATAL VITAMINS W/ FOLIC ACID TABLET (FP) PO SCH (10:11)
[2017-05-15] MEDS: FUROSEMIDE 20 MG TABLET (FP) PO SCH (10:11)
[2017-05-15] MEDS: NICOTINE POLACRILEX 2 MG GUM BUC PRN ×2 (10:18→22:01)
[2017-05-15] MEDS ORDERED: PT OWN MED DRAWER 7, Y5N ONE (19:51)
[2017-05-15] MEDS: THIAMINE HCL 100 MG TABLET (FP) PO SCH (21:54)
[2017-05-15] MEDS: ATORVASTATIN CA 10 MG TABLET (FP) PO SCH (21:54)
[2017-05-15] MEDS: diphenhydrAMINE HCL 50 MG CAPSULE PO PRN (21:55)
[2017-05-15] MEDS: ACETAMINOPHEN 325 MG TABLET (FP) PO PRN (21:56)
[2017-05-16] MEDS ORDERED: METHADONE HCL 40 MG DISPERSABLE TABLET ONE (03:20)
[2017-05-16] MEDS ORDERED: METHADONE HCL 10 MG TABLET ONE (03:20)
[2017-05-16] MEDS: METHADONE 80 MG, METHADONE 10 MG PO SCH (06:46)
[2017-05-16] MEDS: metFORMIN HCL 500 MG TABLET (FP) PO SCH ×2 (06:47→16:33)
[2017-05-16] MEDS: INSULIN SLIDING SCALE (NOVOLOG) 1 VIAL SQ SCH ×2 (06:54→16:34)
[2017-05-16] MEDS: SPIRONOLACTONE 25 MG TABLET (FP) PO SCH ×2 (10:23→16:33)
[2017-05-16] MEDS: FUROSEMIDE 20 MG TABLET (FP) PO SCH (10:24)
[2017-05-16] MEDS: ASPIRIN 81 MG CHEWABLE TABLETS PO SCH (10:24)
[2017-05-16] MEDS: PRENATAL VITAMINS W/ FOLIC ACID TABLET (FP) PO SCH (10:24)
[2017-05-16] MEDS: NICOTINE POLACRILEX 2 MG GUM BUC PRN (10:25)
[2017-05-16] MEDS: TRIAMCINOLONE ACET 0.1% OINT 15 GM TUBE TP SCH ×4 (10:25→22:07)
[2017-05-16] MEDS ORDERED: PT OWN MED DRAWER 7, Y5N ONE (19:50)
[2017-05-16] MEDS: THIAMINE HCL 100 MG TABLET (FP) PO SCH (22:07)
[2017-05-16] MEDS: ATORVASTATIN CA 10 MG TABLET (FP) PO SCH (22:07)
[2017-05-16] MEDS: diphenhydrAMINE HCL 50 MG CAPSULE PO PRN (22:08)
[2017-05-16] MEDS: IBUPROFEN 400 MG TABLET (FP) PO PRN (23:08)
[2017-05-17] MEDS ORDERED: METHADONE HCL 10 MG TABLET ONE (03:27)
[2017-05-17] MEDS ORDERED: METHADONE HCL 40 MG DISPERSABLE TABLET ONE (03:27)
[2017-05-17] MEDS: INSULIN SLIDING SCALE (NOVOLOG) 1 VIAL SQ SCH ×2 (06:20→17:13)
[2017-05-17] MEDS: metFORMIN HCL 500 MG TABLET (FP) PO SCH ×2 (06:20→17:16)
[2017-05-17] MEDS: METHADONE 80 MG, METHADONE 10 MG PO SCH (06:20)
[2017-05-17] MEDS: PRENATAL VITAMINS W/ FOLIC ACID TABLET (FP) PO SCH (10:35)
[2017-05-17] MEDS: FUROSEMIDE 20 MG TABLET (FP) PO SCH (10:35)
[2017-05-17] MEDS: ASPIRIN 81 MG CHEWABLE TABLETS PO SCH (10:35)
[2017-05-17] MEDS: SPIRONOLACTONE 25 MG TABLET (FP) PO SCH ×2 (10:35→17:16)
[2017-05-17] MEDS: NICOTINE POLACRILEX 2 MG GUM BUC PRN ×2 (10:46→17:17)
[2017-05-17] MEDS: TRIAMCINOLONE ACET 0.1% OINT 15 GM TUBE TP SCH ×4 (10:51→22:15)
[2017-05-17] MEDS: IBUPROFEN 400 MG TABLET (FP) PO PRN (11:23)
[2017-05-17] MEDS ORDERED: PT OWN MED DRAWER 7, Y5N ONE (17:28)
[2017-05-17] MEDS: diphenhydrAMINE HCL 50 MG CAPSULE PO PRN (22:15)
[2017-05-17] MEDS: THIAMINE HCL 100 MG TABLET (FP) PO SCH (22:15)
[2017-05-17] MEDS: ACETAMINOPHEN 325 MG TABLET (FP) PO PRN (22:16)
[2017-05-17] MEDS: ATORVASTATIN CA 10 MG TABLET (FP) PO SCH (22:17)
[2017-05-18] MEDS ORDERED: METHADONE HCL 40 MG DISPERSABLE TABLET ONE (05:53)
[2017-05-18] MEDS ORDERED: METHADONE HCL 10 MG TABLET ONE (05:53)
[2017-05-18] MEDS: METHADONE 80 MG, METHADONE 10 MG PO SCH (06:22)
[2017-05-18] MEDS: metFORMIN HCL 500 MG TABLET (FP) PO SCH ×2 (06:22→16:53)
[2017-05-18] MEDS: INSULIN SLIDING SCALE (NOVOLOG) 1 VIAL SQ SCH ×2 (06:48→16:53)
[2017-05-18] MEDS ORDERED: PT OWN MED DRAWER 7, Y5N ONE ×2 (09:00→11:04)
[2017-05-18] MEDS: ASPIRIN 81 MG CHEWABLE TABLETS PO SCH (10:39)
[2017-05-18] MEDS: FUROSEMIDE 20 MG TABLET (FP) PO SCH (10:39)
[2017-05-18] MEDS: PRENATAL VITAMINS W/ FOLIC ACID TABLET (FP) PO SCH (10:39)
[2017-05-18] MEDS: TRIAMCINOLONE ACET 0.1% OINT 15 GM TUBE TP SCH ×4 (10:39→22:20)
[2017-05-18] MEDS: SPIRONOLACTONE 25 MG TABLET (FP) PO SCH ×2 (10:40→16:53)
[2017-05-18] MEDS: NICOTINE POLACRILEX 2 MG GUM BUC PRN (10:41)
[2017-05-18] MEDS: THIAMINE HCL 100 MG TABLET (FP) PO SCH (22:21)
[2017-05-18] MEDS: ATORVASTATIN CA 10 MG TABLET (FP) PO SCH (22:21)
[2017-05-18] MEDS: diphenhydrAMINE HCL 50 MG CAPSULE PO PRN (22:21)
[2017-05-18] MEDS: ACETAMINOPHEN 325 MG TABLET (FP) PO PRN (22:22)
[2017-05-19] MEDS ORDERED: METHADONE HCL 10 MG TABLET ONE (03:22)
[2017-05-19] MEDS ORDERED: METHADONE HCL 40 MG DISPERSABLE TABLET ONE (03:23)
[2017-05-19] MEDS: METHADONE 80 MG, METHADONE 10 MG PO SCH (06:37)
[2017-05-19] MEDS: metFORMIN HCL 500 MG TABLET (FP) PO SCH ×2 (06:38→16:52)
[2017-05-19] MEDS: INSULIN SLIDING SCALE (NOVOLOG) 1 VIAL SQ SCH ×2 (07:37→16:51)
[2017-05-19] MEDS: TRIAMCINOLONE ACET 0.1% OINT 15 GM TUBE TP SCH ×4 (10:56→21:09)
[2017-05-19] MEDS: FUROSEMIDE 20 MG TABLET (FP) PO SCH (10:56)
[2017-05-19] MEDS: SPIRONOLACTONE 25 MG TABLET (FP) PO SCH ×2 (10:56→16:52)
[2017-05-19] MEDS: ASPIRIN 81 MG CHEWABLE TABLETS PO SCH (10:56)
[2017-05-19] MEDS: PRENATAL VITAMINS W/ FOLIC ACID TABLET (FP) PO SCH (10:56)
[2017-05-19] MEDS: ACETAMINOPHEN 325 MG TABLET (FP) PO PRN ×2 (10:59→21:08)
[2017-05-19] MEDS: ATORVASTATIN CA 10 MG TABLET (FP) PO SCH (21:08)
[2017-05-19] MEDS: THIAMINE HCL 100 MG TABLET (FP) PO SCH (21:08)
[2017-05-19] MEDS: diphenhydrAMINE HCL 50 MG CAPSULE PO PRN (21:08)
[2017-05-20] MEDS ORDERED: METHADONE HCL 40 MG DISPERSABLE TABLET ONE (03:25)
[2017-05-20] MEDS ORDERED: METHADONE HCL 10 MG TABLET ONE (03:25)
[2017-05-20] MEDS: INSULIN SLIDING SCALE (NOVOLOG) 1 VIAL SQ SCH ×2 (06:34→16:30)
[2017-05-20] MEDS: METHADONE 80 MG, METHADONE 10 MG PO SCH (06:34)
[2017-05-20] MEDS: metFORMIN HCL 500 MG TABLET (FP) PO SCH ×2 (06:34→16:32)
[2017-05-20] MEDS: NICOTINE POLACRILEX 2 MG GUM BUC PRN ×2 (06:35→11:08)
[2017-05-20] MEDS: FUROSEMIDE 20 MG TABLET (FP) PO SCH (10:52)
[2017-05-20] MEDS: ASPIRIN 81 MG CHEWABLE TABLETS PO SCH (10:52)
[2017-05-20] MEDS: TRIAMCINOLONE ACET 0.1% OINT 15 GM TUBE TP SCH ×4 (10:52→21:55)
[2017-05-20] MEDS: SPIRONOLACTONE 25 MG TABLET (FP) PO SCH ×2 (10:53→16:32)
[2017-05-20] MEDS: PRENATAL VITAMINS W/ FOLIC ACID TABLET (FP) PO SCH (10:53)
[2017-05-20] MEDS: THIAMINE HCL 100 MG TABLET (FP) PO SCH (21:55)
[2017-05-20] MEDS: ATORVASTATIN CA 10 MG TABLET (FP) PO SCH (21:55)
[2017-05-20] MEDS: ACETAMINOPHEN 325 MG TABLET (FP) PO PRN (21:56)
[2017-05-20] MEDS: diphenhydrAMINE HCL 50 MG CAPSULE PO PRN (21:56)
[2017-05-21] MEDS ORDERED: METHADONE HCL 10 MG TABLET ONE (03:32)
[2017-05-21] MEDS ORDERED: METHADONE HCL 40 MG DISPERSABLE TABLET ONE (03:32)
[2017-05-21] MEDS ORDERED: METHADONE HCL 10 MG TABLET PO ONE (06:01)
[2017-05-21] MEDS ORDERED: METHADONE 80 MG, METHADONE 10 MG PO ONE (06:15)
[2017-05-21] MEDS: NICOTINE POLACRILEX 2 MG GUM BUC PRN (06:27)
[2017-05-21] MEDS: INSULIN SLIDING SCALE (NOVOLOG) 1 VIAL SQ SCH (06:27)
[2017-05-21] MEDS: metFORMIN HCL 500 MG TABLET (FP) PO SCH (06:27)
[2017-05-21 08:04] VITALS: TEMP 98.3
--- NOTE | 2017-05-21 08:54 | PN ---
Psychiatric Progress Note Vital Signs: Vital Signs Period Temp Pulse Resp BP Sys/Villeda Pulse Ox Last 24 Hr 98.3 F 93-108 18-18 126-127/75-76 Date of Session: 05/21/17 Chief Complaint:: Discharge visit HPI: Opioid dependence comorbid with Substance induced mood disorder. ROS: BA,Hyperlipidemia,DM,HTN. Current Medications: Active Medications Generic Name Dose Route Start Last Admin Trade Name Freq PRN Reason Stop Dose Admin Acetaminophen 650 mg 05/07/17 20:30 05/20/17 21:56 Tylenol - PO 650 mg Q4H PRN Administration FEVER OR PAIN Al Hydroxide/Mg Hydroxide 30 ml 05/07/17 20:30 Mylanta Oral Suspension - PO Q6H PRN DYSPEPSIA Albuterol Sulfate 2 puff 05/07/17 20:31 Ventolin Hfa Inhaler - IH Q4H PRN SHORT OF BREATH/WHEEZING Aspirin 81 mg 05/08/17 10:00 05/20/17 10:52 Asa - PO 81 mg DAILY TARIQ Administration Atorvastatin Calcium 10 mg 05/07/17 22:00 05/20/17 21:55 Lipitor - PO 10 mg HS TARIQ Administration Diphenhydramine HCl 50 mg 05/07/17 20:30 05/20/17 21:56 Benadryl - PO 50 mg HSMR1 PRN Administration FOR ITCHING Eucalyptus/Menthol/Phenol/Sorbitol 1 each 05/07/17 20:30 Cepastat Lozenge - MM Q4H PRN SORE THROAT Furosemide 20 mg 05/10/17 14:45 05/20/17 10:52 Lasix - PO 20 mg DAILY TARIQ Administration Guaifenesin 10 ml 05/07/17 20:30 Robitussin Dm - PO Q6H PRN COUGH Hydroxyzine Pamoate 50 mg 05/07/17 20:30 Vistaril - PO Q4H PRN AGITATION Ibuprofen 400 mg 05/07/17 20:30 05/17/17 11:23 Motrin - PO 400 mg Q6H PRN Administration PAIN Insulin Aspart 1 vial 05/08/17 07:00 05/21/17 06:27 Novolog Vial Sliding Scale - SQ Not Given BIDAC [facility] Protocol Loperamide HCl 4 mg 05/07/17 20:30 Imodium - PO Q6H PRN DIARRHEA Metformin HCl 500 mg 05/08/17 07:00 05/21/17 06:27 Glucophage - PO 500 mg BID@0700,1630 TARIQ Administration Nicotine 14 mg 05/07/17 20:30 Nicoderm Patch - TD DAILY PRN WITHDRAWAL(CONT SUBST) Nicotine Polacrilex 2 mg 05/07/17 20:30 05/21/17 06:27 Nicorette Gum - BUC 2 mg Q2H PRN Administration NICOTINE REPLACEMENT RX Multivit/Folic Acid/Iron 1 tab 05/08/17 10:00 05/20/17 10:53 Vitamins (Sjr) - PO 1 tab DAILY TARIQ Administration Pseudoephedrine/Triprolidine 1 combo 05/07/17 20:30 Actifed - PO TID PRN NASAL CONGESTION Spironolactone 25 mg 05/10/17 16:30 05/20/17 16:32 Aldactone - PO Not Given BID@1000,1630 TARIQ Thiamine HCl 100 mg 05/07/17 22:00 05/20/17 21:55 Vitamin B1 - PO 100 mg HS TARIQ Administration Triamcinolone Acetonide 1 applic 05/10/17 18:00 05/20/17 21:55 Aristocort 0.1% Ointment - TP Not Given QID TARIQ Current Side Effect: No Lab tests ordered: No Lab tests reviewed: Yes Provider note:: Patient completed this program today.she has met her treatment goals and will [facility]Patient reports finding that current medications including Vistaril 50 mg po prn help to cope with mood instability,sleeping difficulties, anxiety.Patient identifies areas of difficulties,behaviors which contribute to relapse. Supportive therapy provided focusing on relapse prevention.Coping skills,support systen has been discussed to maintain recovery. patient is stable for discharge today. Total face to face time:: 30 Mental Status Exam - Mental Status Exam Alert and Oriented to: Time, Place, Person Cognitive Function: Grossly Intact Patient Appearance: Well Groomed Mood: Hopeful, Euthymic Affect: Mood Congruent Patient Behavior: Cooperative Speech Pattern: Clear Voice Loudness: Normal Thought Process: Goal Oriented Thought Disorder: Not Present Hallucinations: Denies Suicidal Ideation: Denies Homicidal Ideation: Denies Insight/Judgement: Fair Sleep: Fair Appetite: Good Muscle strength/Tone: Normal Gait/Station: Normal Psychiatric Treatment Plan - Problem List (3) Asthma Qualifiers: Asthma severity: mild intermittent Asthma complication type: uncomplicated Qualified Code(s): J45.20 - Mild intermittent asthma, uncomplicated (4) HTN (hypertension) Qualifiers: Hypertension type: essential hypertension Qualified Code(s): I10 - Essential (primary) hypertension (6) Nicotine dependence Qualifiers: Nicotine product type: cigarettes Substance use status: uncomplicated Qualified Code(s): F17.210 - Nicotine dependence, cigarettes, uncomplicated (7) Type II diabetes mellitus Qualifiers: Diabetes mellitus complication status: with skin complications Diabetes mellitus complication detail: with other skin complication Diabetes mellitus senior living insulin use: without senior living use Qualified Code(s): E11.628 - Type 2 diabetes mellitus with other skin complications; Z79.4 - gatekeeper (current) use of insulin
[2017-05-21 09:27] VITALS: BP 127/69; PULSE 111
[2017-05-21] MEDS: SPIRONOLACTONE 25 MG TABLET (FP) PO SCH (10:04)
[2017-05-21] MEDS: TRIAMCINOLONE ACET 0.1% OINT 15 GM TUBE TP SCH (10:04)
[2017-05-21] MEDS: FUROSEMIDE 20 MG TABLET (FP) PO SCH (10:04)
[2017-05-21] MEDS: ASPIRIN 81 MG CHEWABLE TABLETS PO SCH (10:04)
[2017-05-21] MEDS: PRENATAL VITAMINS W/ FOLIC ACID TABLET (FP) PO SCH (10:04)
== END 2017-05-21 10:29 | disposition home or self-care (01) | DRG 895 ==
LOC: YASAS 17:34 → Y3E 17:35
PROVIDERS: ADMIT Psychiatry & Neurology Psychiatry; ATTEND Psychiatry & Neurology Psychiatry
PROC: HZ42ZZZ Group Counseling for Substance Abuse Treatment, Cognitive-Behavioral (ICD-10-PCS; principal; 2017-05-07)
DX: F11.20 Opioid dependence, uncomplicated (principal); F19.282 Other psychoactive substance dependence with psychoactive substance-induced sleep disorder; F32.9 Major depressive disorder, single episode, unspecified; F17.210 Nicotine dependence, cigarettes, uncomplicated; I10 Essential (primary) hypertension; E11.628 Type 2 diabetes mellitus with other skin complications; Z79.4 Long term (current) use of insulin; Z79.84 Long term (current) use of oral hypoglycemic drugs; J45.20 Mild intermittent asthma, uncomplicated; E78.00 Pure hypercholesterolemia, unspecified
CPT/HCPCS: 90688; G0008